=== PATIENT | female | born 1985 | race African-American/Black ===

== ENCOUNTER 2016-09-15 17:32 | Emergency (ER) | payer SELFPAY ==
[~2016-09-15] VITALS: Ht 167.6 cm; Wt 86.2 kg
[2016-09-15 17:40] VITALS: BP 124/77
--- NOTE | 2016-09-15 18:07 | PHYS DOC ---
Past Medical History Past Medical History: Other Additional Past Medical Histor: "a form of diabetes" Past Surgical History: Other Additional Past Surgical Histo: LEEP precedure Alcohol Use: None Drug Use: None Adult General Chief Complaint Chief Complaint: LOWER EXT PAIN HPI HPI Patient is a 31 year old female resents to emergency department stating that she is having left thigh pain and discomfort. She has increased pain with straightening her left leg. She denies any injury or trauma. She states the pain starts in the middle of her thigh and radiates up into her groin area. She denies any numbness or tingling down to her lower extremities. She states that she has having increased pain with trying to ambulate. Patient denies any recent travel. She denies any history of control pills. She denies any knowledge of blood clots in the family as she is adopted. Review of Systems Review of Systems Constitutional: Denies fever or chills [] Eyes: Denies change in visual acuity, redness, or eye pain [] HENT: Denies nasal congestion or sore throat [] Respiratory: Denies cough or shortness of breath [] Cardiovascular: No additional information not addressed in HPI [] GI: Denies abdominal pain, nausea, vomiting, bloody stools or diarrhea [] : Denies dysuria or hematuria [] Musculoskeletal: Denies back pain or joint pain. C/o left thigh pain and discomfort Integument: Denies rash or skin lesions [] Neurologic: Denies headache, focal weakness or sensory changes [] Endocrine: Denies polyuria or polydipsia [] Current Medications Current Medications Current Medications Medications (Trade) Dose Ordered Sig/[facility] Start Time Stop Time Status Last Admin Dose Admin Tramadol HCl (Ultram) 50 mg 1X ONCE 09/15/16 18:15 09/15/16 18:16 DC 09/15/16 18:16 50 MG Allergies Allergies Allergies Coded Allergies Type Severity Reaction Last Updated Verified No Known Drug Allergies 08/11/13 No Physical Exam Physical Exam Constitutional: Well developed, well nourished, no acute distress, non-toxic appearance. [] HENT: Normocephalic, atraumatic, bilateral external ears normal, oropharynx moist, no oral exudates, nose normal. [] Eyes: PERRLA, EOMI, conjunctiva normal, no discharge. [] Neck: Normal range of motion, no tenderness, supple, no stridor. [] Cardiovascular:Heart rate regular rhythm, no murmur [] Lungs & Thorax: Bilateral breath sounds clear to auscultation [] Abdomen: Bowel sounds normal, soft, no tenderness, no masses, no pulsatile masses. [] Skin: Warm, dry, no erythema, no rash. [] Back: No tenderness Extremities: Left thigh tenderness, no cyanosis, no clubbing, ROM intact, no edema. She'll with increased pain and discomfort upon trying to straighten the left knee out. Peripheral pulses are 2+ cap refill brisk less than 2 seconds. Negative Homans sign. Neurologic: Alert and oriented X 3, normal motor function, normal sensory function, no focal deficits noted. [] Psychologic: Affect normal, judgement normal, mood normal. [] Current Patient Data Vital Signs Vital Signs Date Time Temp Pulse Resp B/P (MAP) Pulse Ox O2 Delivery O2 Flow Rate FiO2 09/15/16 17:40 98.4 72 16 100 Room Air 98.4 EKG EKG [] Radiology/Procedures Radiology/Procedures [facility] [address] [place], [place] [id number] IMAGING REPORT Signed PATIENT: MARVEL SANTOS ACCOUNT: [id number] : 1985 LOCATION: ER AGE: 31 SEX: F EXAM STATUS: REG ER ORD. PHYSICIAN: LUPE MOFFETT APRN REASON: pain in the thigh, no trauma, no injury //NOTIFIED SONO PROCEDURE: VENOUS LOWER EXTREMITY LEFT Left lower extremity venous doppler ultrasound History: Left thigh pain for one day Comparison: None Findings: Multiple grayscale, color, and duplex spectral analysis sonographic images were acquired of the left lower extremity veins to evaluate for the presence of DVT. There is normal phasicity. Normal compression, color-flow, and augmentation is demonstrated from the left common femoral to the popliteal veins. There is normal color flow of the proximal greater saphenous and profunda femoris veins. There is normal color flow of segments of the calf veins. Impression: 1. There is no evidence of deep venous thrombosis from the left common femoral to popliteal veins. Electronically signed by: Francisco Bacon MD (09/15/2016 7:15 PM) DICTATED and SIGNED BY: FRANCISCO BACON MD DATE: 09/15/161913 CC: LUPE MOFFETT APRN; NO PCP ~ [] Course & Med Decision Making Course & Med Decision Making Pertinent Labs and Imaging studies reviewed. (See chart for details) Ultrasound was negative for any DVT. Patient was provided with Ultram in which she states is helped a little bit with the pain and discomfort. Patient will be discharged home with recommendations for ice packs on the area on 20 minutes off 20 minutes several times a day. The be recommended to take 800 mg of ibuprofen every 8 hours with food stop taking few develop an upset stomach. Recommended following up with primary care physician in the next 3-5 days. Signs and symptoms to return back to emergency department as been provided. [] Dragon Disclaimer Dragon Disclaimer This electronic medical record was generated, in whole or in part, using a voice recognition dictation system. Departure Departure Impression: Primary Impression: Leg pain, left Disposition: 01 HOME, SELF-CARE Condition: STABLE Referrals: NON,STAFF (PCP) Patient Instructions: Muscle Strain, [id number] Additional Instructions: Ultrasound was negative for any DVTs or blood clots. Ice packs to the area on 20 minutes off 20 minutes several times a day. He cannot tolerate ice pack she may try warm moist packs. Ibuprofen 800 mg every 8 hours with food stop taking few develop an upset stomach. Follow-up through primary care physician in the next 3-5 days. Return back to emergency department for signs symptoms of become worse. LUPE MOFFETT APRN September 15, 2016 18:07
[2016-09-15] MEDS ORDERED: traMADol 50 MG TABLET PO ONE (18:15)
--- NOTE | 2016-09-15 19:18 | RAD ---
Left lower extremity venous doppler ultrasound History: Left thigh pain for one day Comparison: None Findings: Multiple grayscale, color, and duplex spectral analysis sonographic images were acquired of the left lower extremity veins to evaluate for the presence of DVT. There is normal phasicity. Normal compression, color-flow, and augmentation is demonstrated from the left common femoral to the popliteal veins. There is normal color flow of the proximal greater saphenous and profunda femoris veins. There is normal color flow of segments of the calf veins. Impression: 1. There is no evidence of deep venous thrombosis from the left common femoral to popliteal veins. Electronically signed by: Francisco Morillo MD (09/15/2016 7:15 PM)
== END 2016-09-15 19:28 | disposition home or self-care (01) ==
LOC: ER 17:32
DX: M79.652 Pain in left thigh (principal)
CPT/HCPCS: 93971; 99284-25

== ENCOUNTER 2017-10-11 22:14 | Emergency (ER) | payer SELFPAY ==
[2017-10-11 23:18] LABS: POC GLUCOSE 117 mg/dL (70-99)
[2017-10-11 23:29] LABS: BILIRUBIN,URINE NEGATIVE (NEG); CLARITY,URINE CLEAR; COLOR,URINE YELLOW; GLUCOSE,URINE NEGATIVE (NEG); NITRITE,URINE POSITIVE (NEG); PROTEIN,URINE NEGATIVE (NEG-TRACE); UROBILINOGEN,URINE 0.2 mg/dL (0.2 mg/dL)
[2017-10-11] MEDS: IV NORMAL SALINE 1000ML BAG 1,000 ML IV (23:34)
[2017-10-11 23:38] LABS: BACTERIA,URINE MANY /HPF (0-FEW); SQUAMOUS EPITHELIAL CELL,UR FEW /LPF; WBC,URINE >40 /HPF (0-4)
[2017-10-11 23:39] LABS: NEG OBC UR NEG; POS OBC UR POS; U PREG PATIENT NEGATIVE (NEG)
[2017-10-12 00:08] LABS: ADD MAN DIFF? NO; BASO % 1 % (0-3); EOS % 1 % (0-3); HEMATOCRIT 33.7 % (36.0-47.0); HEMOGLOBIN 11.3 g/dL (12.0-15.5); LYMPH # 1.5 x10^3/uL (1.0-4.8); LYMPH % 31 % (24-48); MEAN CORPUSCULAR HEMOGLOBIN 27 pg (25-35); MEAN CORPUSCULAR HGB CONC 34 g/dL (31-37); MEAN CORPUSCULAR VOLUME 80 fL (79-100); MONO # 0.5 x10^3/uL (0.0-1.1); MONO % 10 % (0-9); NEUT # 2.8 x10^3uL (1.8-7.7); NEUT % 57 % (31-73); PLATELET COUNT 164 x10^3/uL (140-400); RED BLOOD COUNT 4.19 x10^6/uL (3.50-5.40); WHITE BLOOD COUNT 4.8 x10^3/uL (4.0-11.0)
[2017-10-12 00:32] LABS: ANION GAP 4 (6-14); BLOOD UREA NITROGEN 10 mg/dL (7-20); BUN/CREATININE RATIO 14 (6-20); CALCIUM 7.8 mg/dL (8.5-10.1); CARBON DIOXIDE 27 mmol/L (21-32); CHLORIDE 108 mmol/L (98-107); CREATININE 0.7 mg/dL (0.6-1.0); GFR 116.6; GLUCOSE 118 mg/dL (70-99); POTASSIUM 3.9 mmol/L (3.5-5.1); SODIUM 139 mmol/L (136-145)
[2017-10-12 00:39] LABS: ALBUMIN/GLOBULIN RATIO 0.9 (1.0-1.7); ALK PHOS 86 U/L (46-116); ALT (SGPT) 17 U/L (14-59); AST (SGOT) 11 U/L (15-37); TOTAL BILIRUBIN 0.2 mg/dL (0.2-1.0); TOTAL PROTEIN 6.5 g/dL (6.4-8.2)
[2017-10-12] MEDS: MECLIZINE HCL 12.5 MG TABLET. PO (00:54)
== END 2017-10-12 02:30 | disposition home or self-care (01) ==
LOC: ER 10-12 02:30
DX: R42 Dizziness and giddiness (principal); R35.0 Frequency of micturition; R06.02 Shortness of breath; E11.9 Type 2 diabetes mellitus without complications
CPT/HCPCS: 36415; 80053; 81001; 81025; 82962; 85025; 87086; 93005; 96361; 96365; 99285-25; J0690; J7030; J8597

== ENCOUNTER 2019-02-21 17:02 | Emergency (ER) | payer SELFPAY ==
[~2019-02-21] VITALS: Ht 167.6 cm; Wt 70.3 kg
[~2019-02-21 17:02] MED LIST: MECL25TA3 PO; NITR100C62 PO
--- NOTE | 2019-02-21 17:42 | PHYS DOC ---
Past Medical History Past Medical History: Other Additional Past Medical Histor: "a form of diabetes" (FREDRICK MUÑIZ APRN) Past Surgical History: Other Additional Past Surgical Histo: LEEP precedure (FREDRICK MUÑIZ APRN) Alcohol Use: None Drug Use: None (FREDRICK MUÑIZ APRN) Attending Signature I have participated in the care of this patient and I have reviewed and agree with all pertinent clinical information above including history, exam, and recommendations. (MAURICE MARINO MD) Adult General Chief Complaint Chief Complaint: PELVIC PAIN HPI HPI Patient is a 34 year old female who presents to the ED today complaining of mild bilateral pelvic pain described as cramping intermittently for 2 weeks. Patient denies any exacerbating or relieving factors. Denies any concerns for STDs, denies any unusual vaginal discharge. She is a very poor historian. She states she's also been smelling things more than normal and could be despite her tubes being tied and having a cycle at the end of January. (FREDRICK MUÑIZ APRN) Review of Systems Review of Systems Constitutional: Denies fever or chills [] Eyes: Denies change in visual acuity, redness, or eye pain [] HENT: Denies nasal congestion or sore throat [] Respiratory: Denies cough or shortness of breath [] Cardiovascular: No additional information not addressed in HPI [] GI: Reports pelvic pain, denies nausea, vomiting, bloody stools or diarrhea [] : Denies dysuria or hematuria [] Musculoskeletal: Denies back pain or joint pain [] Integument: Denies rash or skin lesions [] Neurologic: Denies headache, focal weakness or sensory changes [] All other systems were reviewed and found to be within normal limits, except as documented in this note. (FREDRICK MUÑIZ APRN) Allergies Allergies Allergies Coded Allergies Type Severity Reaction Last Updated Verified No Known Drug Allergies 08/11/13 No (MAURICE MARINO MD) Physical Exam Physical Exam Constitutional: Well developed, well nourished, no acute distress, non-toxic appearance. [] HENT: Normocephalic, atraumatic, bilateral external ears normal, oropharynx moist, no oral exudates, nose normal. [] Eyes: PERRLA, EOMI, conjunctiva normal, no discharge. [] Neck: Normal range of motion, no tenderness, supple, no stridor. [] Cardiovascular:Heart rate regular rhythm, no murmur [] Lungs & Thorax: Bilateral breath sounds clear to auscultation [] Abdomen: Bowel sounds normal, soft, no tenderness, no masses, no pulsatile masses. [] pelvic exam External pelvic appears normal, cervix is visualized, closed, nose, no adnexal tenderness, trace amount of white discharge in the vaginal vault. Skin: Warm, dry, no erythema, no rash. [] Back: No tenderness, no CVA tenderness. [] Extremities: No tenderness, no cyanosis, no clubbing, ROM intact, no edema. [] Neurologic: Alert and oriented X 3, normal motor function, normal sensory function, no focal deficits noted. [] Psychologic: Affect normal, judgement normal, mood normal. [] (FREDRICK MUÑIZ APRN) Current Patient Data Vital Signs Vital Signs Date Time Temp Pulse Resp B/P (MAP) Pulse Ox O2 Delivery O2 Flow Rate FiO2 02/21/19 18:45 68 16 128/79 (95) 98 Room Air 02/21/19 17:46 98.0 98.0 (MAURICE MARINO MD) Lab Values Laboratory Tests Test 02/21/19 17:13 02/21/19 17:17 Urine Collection Type Unknown Urine Color Yellow Urine Clarity Clear Urine pH 6.5 Urine Specific Cornish 1.025 Urine Protein Negative mg/dL (NEG-TRACE) Urine Glucose (UA) Negative mg/dL (NEG) Urine Ketones (Stick) Negative mg/dL (NEG) Urine Blood Negative (NEG) Urine Nitrite Positive (NEG) Urine Bilirubin Negative (NEG) Urine Urobilinogen Dipstick 1.0 mg/dL (0.2 mg/dL) Urine Leukocyte Esterase Small (NEG) Urine RBC Occ /HPF (0-2) Urine WBC 1-4 /HPF (0-4) Urine Squamous Epithelial Cells Few /LPF Urine Bacteria Many /HPF (0-FEW) Urine Opiates Screen Neg (NEG) Urine Methadone Screen Neg (NEG) Urine Barbiturates Neg (NEG) Urine Phencyclidine Screen Neg (NEG) Urine Amphetamine/Methamphetamine Neg (NEG) Urine Benzodiazepines Screen Neg (NEG) Urine Cocaine Screen Neg (NEG) Urine Cannabinoids Screen Neg (NEG) Urine Ethyl Alcohol Neg (NEG) POC Urine HCG, Qualitative Hcg negative (Negative) Microbiology 02/21/19 Wet Prep - Final, Complete (MAURICE MARINO MD) EKG EKG [] (FREDRICK MUÑIZ APRN) Radiology/Procedures Radiology/Procedures []PROCEDURE: PELVIS W/TV Complete pelvic ultrasound HISTORY: Right lower quadrant pain. TECHNIQUE: Transabdominal and transvaginal transducers were utilized. FINDINGS: Transabdominal imaging demonstrates anteverted uterus measuring 8.5 x 5.3 x 6.1 cm. No uterine mass. Ovaries not visualized transabdominal. Transvaginal imaging demonstrates anteverted uterus. Cervix is normal. Endometrial thickness is 0.9 cm. No uterine or endometrial mass documented. Right ovary measures 2.7 x 1.8 x 2.5 cm with a 0.9 cm dominant follicle. Left ovary measures 3.9 x 2.3 x 2.3 cm with a 1.8 cm dominant follicle. There is intact bilateral ovarian blood flow. No pelvic fluid. IMPRESSION: Normal exam. Electronically signed by: Torri Ybarra MD (02/21/2019 6:18 PM) [facility] DICTATED and SIGNED BY: TORRI YBARRA MD DATE: 02/21/191817 (FREDRICK MUÑIZ APRN) Course & Med Decision Making Course & Med Decision Making Pertinent Labs and Imaging studies reviewed. (See chart for details) This is a 34-year-old female patient presenting to the ED today with pelvic pain for 2 weeks. Negative urine hCG. Positive for UTI-discharged on cephalexin. Wet prep positive for BV, discharged with Flagyl. Follow-up with PCP in 1-2 weeks. (FREDRICK MUÑIZ APRN) Dragon Disclaimer Dragon Disclaimer This electronic medical record was generated, in whole or in part, using a voice recognition dictation system. (FREDRICK MUÑIZ APRN) Departure Departure Impression: Primary Impression: UTI (urinary tract infection) Additional Impression: Bacterial vaginosis Disposition: 01 HOME, SELF-CARE Condition: STABLE Referrals: NO PCP (PCP) follow up with your doctor next week Patient Instructions: Bacterial Vaginosis, Urinary Tract Infection Additional Instructions: You have urinary tract infection and bacterial vaginosis, complete the prescribed antibiotics. Take the pain medications as needed. Follow-up with your doctor in 1-2 weeks. Scripts Naproxen (NAPROXEN) 500 Mg Tablet. 1 TAB PO BID, #20 TAB 0 Refills Prov: FREDRICK MUÑIZ APRN 02/21/19 Cyclobenzaprine Hcl (CYCLOBENZAPRINE HCL) 10 Mg Tablet 1 TAB PO TID, #30 TAB Prov: FREDRICK MUÑIZ APRN 02/21/19 Cephalexin (CEPHALEXIN) 500 Mg Tablet 1 TAB PO BID, #14 TAB Prov: FREDRICK MUÑIZ APRN 02/21/19 Problem Qualifiers Primary Impression: UTI (urinary tract infection) Urinary tract infection type: site unspecified Hematuria presence: without hematuria Qualified Codes: N39.0 - Urinary tract infection, site not specified FREDRICK MUÑIZ APRN Feb 21, 2019 17:42 MAURICE MARINO MD Feb 21, 2019 23:17
[2019-02-21 17:47] LABS: BILIRUBIN,URINE NEGATIVE (NEG); CLARITY,URINE CLEAR; COLOR,URINE YELLOW; NITRITE,URINE POSITIVE (NEG); PH,URINE 6.5; PROTEIN,URINE NEGATIVE (NEG-TRACE)
[2019-02-21 17:51] LABS: BARBITURATES NEG (NEG); BENZODIAZEPINES NEG (NEG); CANNABINOIDS NEG (NEG); COCAINE NEG (NEG); METHADONE NEG (NEG); OPIATES NEG (NEG); PHENCYCLIDINE NEG (NEG)
[2019-02-21 17:54] LABS: AMPHETAMINE/METHAMPHETAMINE NEG (NEG)
[2019-02-21 18:02] LABS: BACTERIA,URINE MANY /HPF (0-FEW); RBC,URINE OCC /HPF (0-2); SQUAMOUS EPITHELIAL CELL,UR FEW /LPF
--- NOTE | 2019-02-21 18:21 | RAD ---
Complete pelvic ultrasound HISTORY: Right lower quadrant pain. TECHNIQUE: Transabdominal and transvaginal transducers were utilized. FINDINGS: Transabdominal imaging demonstrates anteverted uterus measuring 8.5 x 5.3 x 6.1 cm. No uterine mass. Ovaries not visualized transabdominal. Transvaginal imaging demonstrates anteverted uterus. Cervix is normal. Endometrial thickness is 0.9 cm. No uterine or endometrial mass documented. Right ovary measures 2.7 x 1.8 x 2.5 cm with a 0.9 cm dominant follicle. Left ovary measures 3.9 x 2.3 x 2.3 cm with a 1.8 cm dominant follicle. There is intact bilateral ovarian blood flow. No pelvic fluid. IMPRESSION: Normal exam. Electronically signed by: Mono Ybarra MD (02/21/2019 6:18 PM) [facility]
[2019-02-21 18:45] VITALS: BP 128/79
[2019-02-21] MEDS ORDERED: CYCL10TA2 PO (18:49)
[2019-02-21] MEDS ORDERED: CEPH500T PO (18:49)
[2019-02-21] MEDS ORDERED: NAPR500T8 PO (18:49)
[2019-02-23 17:09] LABS: GC PROBE Negative (Negative)
== END 2019-02-21 19:07 | disposition home or self-care (01) ==
LOC: ER 17:02
DX: N39.0 Urinary tract infection, site not specified (principal); N76.0 Acute vaginitis; B96.89 Other specified bacterial agents as the cause of diseases classified elsewhere
CPT/HCPCS: 76830; 76856; 80307; 81001; 81025; 87491; 87591; 99285; Q0111